=== PATIENT | male | born 1990 | race Caucasian/White ===

== ENCOUNTER 2018-03-02 23:36 | Emergency (ER) | payer SELFPAY ==
[~2018-03-02] VITALS: Ht 170.2 cm; Wt 62.6 kg
--- NOTE | 2018-03-02 23:49 | NUR ---
PT A/OX4, RESPONSIVE TO VERBAL AND TACTILE STIMULI. PT C/O PAIN IN R ANKLE THAT STARTED ABOUT 2 HOURS AGO, PROVOKED BY WALKING, DOES NOT RADIATE, 10/10, SHARP IN QUALITY, AND CONSTANT. PT DENIES INJURING THE ANKLE WHILE PLAYING BASKETBALL. PAIN WAS SUDDEN IN ONSET ABOUT AN HOUR AFTER PLAYING BASKETBALL. R ANKLE IS SWOLLEN. PMSC INTACT, CAP REFILL < 3 SECS. PT DENIES C/P, SOB, N/V/D, HEADACHE, DIZZINESS. ER MD AT BEDSIDE.
[2018-03-02] MEDS ORDERED: NAPROXEN 500 MG TABLET ONE (23:57)
[2018-03-02] MEDS: NAPROXEN 500 MG TABLET PO ONE (23:57)
--- NOTE | 2018-03-03 00:11 | NUR ---
[employer] INSTALLER AT BEDSIDE.
[2018-03-03 00:47] VITALS: BP 112/78
--- NOTE | 2018-03-03 00:47 | NUR ---
Patient discharged to home in stable conditon. Written and verbal after care instructions given. Patient verbalizes understanding of instructions. PT D/C WITH PRESCRIPTION. ALL BELONGINGS W/ PT. PT SELF-AMBULATED WITHOUT DIFFICULTY.
== END 2018-03-03 00:48 | disposition home or self-care (01) ==
LOC: ER 23:40
DX: M25.571 Pain in right ankle and joints of right foot (principal); F17.210 Nicotine dependence, cigarettes, uncomplicated; Z88.0 Allergy status to penicillin
CPT/HCPCS: 73610; A4663